=== PATIENT | female | born 1955 | race Caucasian/White ===

== ENCOUNTER → 2022-02-23 | Outpatient (CLI) | payer MEDICARE, OTHER | LOC: KOH-I 11:17 | DX: S92.414D Nondisplaced fracture of proximal phalanx of right great toe, subsequent encounter for fracture with routine healing (principal); X58.XXXD Exposure to other specified factors, subsequent encounter | CPT/HCPCS: 73660 ==

== ENCOUNTER → 2022-03-09 | Outpatient (CLI) | payer MEDICARE, OTHER | LOC: KOH-I 10:16 | DX: S92.911A Unspecified fracture of right toe(s), initial encounter for closed fracture (principal) | CPT/HCPCS: 73630 ==

== ENCOUNTER → 2022-03-30 | Outpatient (CLI) | payer MEDICARE, OTHER | LOC: KOH-I 10:00 | DX: S92.421A Displaced fracture of distal phalanx of right great toe, initial encounter for closed fracture (principal) | CPT/HCPCS: 73630 ==

== ENCOUNTER → 2022-05-03 | Outpatient (CLI) | payer MEDICARE, OTHER | LOC: KOH-I 09:42 | DX: S92.421D Displaced fracture of distal phalanx of right great toe, subsequent encounter for fracture with routine healing (principal) | CPT/HCPCS: 73660 ==